=== PATIENT | female | born 1990 | race Caucasian/White ===

== ENCOUNTER 2017-05-07 14:44 | Emergency (ER) | payer MEDICAID ==
[~2017-05-07] VITALS: Ht 165.1 cm; Wt 54.5 kg
[2017-05-07 14:49] VITALS: BP 126/83
[2017-05-07] MEDS ORDERED: INSNOV SQ (14:51)
[2017-05-07] MEDS ORDERED: INSU100I26 SQ (14:51)
[2017-05-07 14:57] LABS: GLUCOSE,POINT OF CARE 248 MG/DL (70-110)
[2017-05-07] MEDS ORDERED: IBUPROFEN 400 MG TABLET PO ONE (15:30)
== END 2017-05-07 15:40 | disposition home or self-care (01) ==
LOC: EMS 14:48
DX: Z04.1 Encounter for examination and observation following transport accident (principal); E11.9 Type 2 diabetes mellitus without complications; V43.62XA Car passenger injured in collision with other type car in traffic accident, initial encounter; Y93.89 Activity, other specified; Y92.488 Other paved roadways as the place of occurrence of the external cause; Y99.8 Other external cause status
CPT/HCPCS: 82962; 99282